=== PATIENT | female | born 1940 | race African-American/Black ===

== ENCOUNTER 2019-07-18 15:59 | Inpatient (IN) | payer OTHER ==
[~2019-07-18] VITALS: Ht 152.4 cm; Wt 72.6 kg
[2019-07-18 16:01] VITALS: BP 145/75
[2019-07-18 16:45] LABS: ABSOLUTE NEUTROPHILS 5.6 thou/uL (1.4-8.2); BASOPHILS 0.6 % (0.0-2.0); EOSINOPHILS 0.7 % (0.0-3.0); HEMATOCRIT 36.4 % (37.0-47.0); HEMOGLOBIN 11.8 gm/dL (12.0-15.0); LYMPHOCYTES 14.8 % (24.0-44.0); MCH 28.8 pg (26.0-34.0); MCHC 32.5 g/dL (28.0-37.0); MCV 88.5 fL (80.0-100.0); PLATELET COUNT 266 thou/uL (150-400); POLYS 72.9 % (36.0-66.0); RBC 4.11 mil/uL (4.20-5.00); RDW 15.6 % (10.5-14.5); WBC 7.6 thou/uL (4.0-11.0)
[2019-07-18 16:49] LABS: CALCIUM 9.6 mg/dL (8.5-10.1); CREATININE 1.3 mg/dL (0.6-1.0); POTASSIUM 4.1 mmol/L (3.5-5.1)
--- NOTE | 2019-07-18 16:58 | NUR ---
KRISTINA [phone] FAMILY CALLED TO GET AN UPDATE
[2019-07-18 16:59] LABS: ALBUMIN 2.7 g/dL (3.4-5.0); TOTAL BILIRUBIN 0.7 mg/dL (<0.1-1.0); TOTAL PROTEIN 7.9 g/dL (6.4-8.2); TROPONIN-I 0.13 ng/mL (<0.06)
[2019-07-18 17:13] LABS: URINE BILIRUBIN 1+ (Negative); URINE BLOOD 3+ (Negative); URINE CLARITY CLOUDY; URINE COLOR YELLOW; URINE GLUCOSE-RANDOM* NEGATIVE (Negative); URINE KETONES TRACE (Negative); URINE NITRITE-REFLEX NEGATIVE (Negative); URINE PROTEIN (DIPSTICK) 3+ (Negative); URINE SPECIFIC GRAVITY >= 1.030 (1.005-1.035)
[2019-07-18 17:14] LABS: ICTOTEST (BILI CONFIRMATORY) Negative (Negative); URINE LEUKOCYTES-REFLEX 1+ (Negative)
[2019-07-18] MEDS ORDERED: ULTRAM50 MG PO (17:27)
[2019-07-18 17:28] LABS: URINE WBC-REFLEX >25 Many /HPF (0-5)
[2019-07-18] MEDS ORDERED: TYLENOL325 MG PO (17:28)
[2019-07-18 17:29] LABS: BACTERIA-REFLEX >30 Many /HPF (None Seen); CASTS None Seen /LPF (None Seen); SQUAMOUS 0-3 Few /LPF (0-3)
[2019-07-18] MEDS ORDERED: PLAVIX 75 MG TA75 MG PO (17:29)
[2019-07-18] MEDS ORDERED: TRADJENTA5 MG (17:29)
[2019-07-18] MEDS ORDERED: LIPITOR 20 MG T20 M1 PO (17:29)
[2019-07-18] MEDS ORDERED: CARVEDILOL25 MG PO (17:29)
[2019-07-18 17:30] LABS: URIC ACID CRYSTALS 0-3 Few /LPF (None Seen)
[2019-07-18] MEDS ORDERED: TIZANIDINE HCL 22 M1 PO (17:30)
[2019-07-18 18:59] VITALS: BP 160/85
--- NOTE | 2019-07-18 19:01 | NUR ---
CALLED FAMILY TO INFORM OF PT BEING ADMITTED. INFORMED OF ROOM NUMBER
[2019-07-18 19:40] VITALS: BP 151/78
[2019-07-19 00:01] VITALS: BP 126/78
[2019-07-19] MEDS ORDERED: FLORANEX TABLE1 EACH PO (01:33)
[2019-07-19] MEDS ORDERED: LEVAQUIN 500 M500 M3 PO (01:34)
[2019-07-19] MEDS ORDERED: TRADJENTA5 MG PO (01:45)
[2019-07-19] MEDS ORDERED: LIDODERM1 EACH TOP (01:55)
[2019-07-19] MEDS ORDERED: TRADJENTA5 MG (01:57)
--- NOTE | 2019-07-19 01:59 | NUR ---
Patient was admitted to at 1930. Patient is confused. Nursing oriented patient to unit and completed admission documentation as best as possible without family/DPOA present. Fall precations in place. Nursing will continue to closely monitor.
[2019-07-19 05:03] VITALS: BP 171/85
--- NOTE | 2019-07-19 05:59 | NUR ---
Patient rested through NOC; nursing provided Q2 turns. Nursing will continue to monitor.
[2019-07-19 06:33] LABS: CHOLESTEROL 81 mg/dL (<200); HDL CHOLESTEROL 42 mg/dL (>40); LDL CHOLESTEROL 29 mg/dL (<100); TC:HDL 1.9 Ratio (Not establshd); TRIGLYCERIDE 52 mg/dL (<150); VLDL 10 mg/dL (<40)
[2019-07-19 06:34] LABS: SERUM ASSESSMENT Clear
[2019-07-19 07:21] VITALS: BP 163/85
[2019-07-19 08:01] VITALS: BP 142/89
--- NOTE | 2019-07-19 08:06 | NUR ---
ASSESSMENT: CM REVIEWED CHART AND MET WITH PATIENT AT THE BEDSIDE. PT IS A FROM [facility]. PT REPORTS SHE NORMALLY USES A WHEELCHAIR WHILE SHE IS THERE. PT IS AT [facility] FOR A SNF STAY AND DAUGHTER JOSE REPORTS SHE WAS ALSO RECENTLY AT [facility] THEN AT ANOTHER SNF BUT CANNOT THINK OF THE NAME AT THIS TIME. PLANS ARE FOR PATIENT TO RETURN TO [facility] ONCE MEDICALLY STABLE. PRIOR TO THAT PATIENT LIVES IN A HOUSE WITH HER DAUGHTER WHERE THEY HAVE ARRANGED EVERYTHING ON THE FIRST FLOOR FOR HER AND SHE HAS A WALKER TO ASSIST WITH AMBULATION. CM FAXED UPDATED CLINICAL TO [facility]. DAUGHTER REPORTS THAT PATIENTS DAUGHTER ALSO AND HER IS THIS TUESDAY BUT IF PATIENT IS NOT READY FOR DISCHARGE THEN THEY WILL NOT TAKE HER. CM WILL CONTIUE TO FOLLOW TO ASSIST NEEDED.
--- NOTE | 2019-07-19 08:15 | NUR ---
PT HAD 8/10 MIDSTERNAL CHEST PAIN RELIEVED WITH ONE NITRO. EKG OBTAINED. WILL CONTINUE TO ASSESS.
--- NOTE | 2019-07-19 08:27 | EKG ---
[address] [place] [address] ELECTROCARDIOGRAM REPORT Name: BERENICE PHILLIPS Room #: 362-P ADM IN M.R.#: [id number] Admission: 07/18/19 Attend Phys: Nydia Pena MD Discharge: Date of : 36 Report #: [id number] THIS REPORT FOR: //name// [facility] ED Test Date: 2019-07-18 Test Time: 17:18:59 Pat Name: BERENICE PHILLIPS Department: Room: 362 Gender: F Guest Services Lead: OXANA : 1940 Requested By: Shira Ramos Order Number: [id number] MD: Helder Cordero Measurements Intervals [place] Rate: 75 P: -30 SD: 190 QRS: 21 QRSD: 89 T: 22 QT: 390 QTc: 436 Interpretive Statements Sinus rhythm Atrial premature complexes Consider left ventricular hypertrophy Baseline wander in lead(s) V5 No previous ECG available for comparison Electronically Signed On 07-19-2019 8:27:29 CAKE WRAPPER by Helder Cordero [email or web address] <ELECTRONICALLY SIGNED> By: Helder Cordero MD 07/19/19 08 17 17 Helder Cordero MD /AUGIE
--- NOTE | 2019-07-19 08:35 | EKG ---
[address] [address] ELECTROCARDIOGRAM REPORT Name: BERENICE PHILLIPS Room #: 362-P ADM IN M.R.#: [id number] Admission: 07/18/19 Attend Phys: Nydia Pena MD Discharge: Date of : 36 Report #: [id number] THIS REPORT FOR: //name// [facility] Test Date: 2019-07-19 Test Time: 08:11:51 Pat Name: BERENICE PHILLIPS Department: Room: 362 P Gender: F Boring Machine Set Up Operator: Mic ENRIQUEZ : 1940 Requested By: Nydia Pena Order Number: [id number] MD: Helder Cordero Measurements Intervals [place] Rate: 90 P: -34 AK: 182 QRS: 35 QRSD: 97 T: 27 QT: 375 QTc: 459 Interpretive Statements Sinus rhythm Probable left ventricular hypertrophy No previous ECG available for comparison Electronically Signed On 07-19-2019 8:35:10 NOVELTY TWISTER TENDER by Helder Cordero [email or web address] <ELECTRONICALLY SIGNED> By: Helder Cordero MD 07/19/1937 0 0 Helder Cordero MD /AUGIE
--- NOTE | 2019-07-19 10:50 | 2DMMODE ---
[facility] [address] [place] [address] 2 D/M-MODE ECHOCARDIOGRAM Name: BERENICE PHILLIPS Room #: 362-P ADM IN .R.#: [id number] Admission: 07/18/19 Attend Phys: Nydia Pena MD Discharge: Date of : 36 Report #: [id number] THIS REPORT FOR: //name// APPROVED REPORT Study performed: 07/19/2019 09:34:29 EXAM: Comprehensive 2D, Doppler, and color-flow Echocardiogram Patient Location: Bedside Room #: 362 Status: routine BSA: 1.70 HR: 93 bpm BP: 142/89 mmHg Other Information Study Quality: Good Indications Congestive Heart Failure COPD Diabetes Elevated Troponin Hypertension/HDD 2D Dimensions RVDd: 27.89 mm IVSd: 11.80 (7-11mm) LVOT Diam: 19.23 (18-24mm) LVDd: 49.06 mm PWd: 12.32 (7-11mm) Ascending Ao: 29.83 (22-36mm) LVDs: 41.77 (25-40mm) Aortic Root: 29.37 mm IVC: 21.00 mm Volumes Left Atrial Volume (Systole) Single Plane 4CH: 87.59 mL Single Plane 2CH: 73.14 mL LA ESV Index: 51.00 mL/m2 Aortic Valve AoV Peak Don.: 1.46 m/s AO Peak Gr.: 8.55 mmHg LVOT Max P.23 mmHg LVOT Max V: 1.03 m/s SHARON Vmax: 2.04 cm2 Pulmonary Valve [facility] [email or web address] [address] 2 D/M-MODE ECHOCARDIOGRAM Name: BERENICE PHILLIPS Room #: 362-P [facility] IN [facility].#: [id number] Admission: 07/18/19 Attend Phys: Nydia Pena MD Discharge: Date of : 36 Report #: [id number] PV Peak Don.: 0.98 m/s PV Peak Gr.: 3.84 mmHg Tricuspid Valve TR Peak Don.: 3.05 m/s TR Peak Gr.: 37.29 mmHg PA Pressure: 47.00 mmHg Left Ventricle The left ventricle is normal size. There is global hypokinesis of the left ventricle. Mild concentric left ventricular hypertrophy. Left ventricular ejection fraction is moderate to severely decreased. LVEF is 35%. The diastolic function is abnormal. Appears to be restrictive pattern Right Ventricle The right ventricle is normal size. The right ventricular systolic function is normal. Atria Left atrium is dilated. Right atrium is dilated. Aortic Valve The aortic valve is normal in structure. No aortic regurgitation is present. There is no aortic valvular stenosis. Mitral Valve The mitral valve is normal in structure. Moderate to severe mitral regurgitation No evidence of mitral valve stenosis. Tricuspid Valve The tricuspid valve is normal in structure. There is mild tricuspid regurgitation. Estimated PAP 45 mmHg. There is moderate pulmonary hypertension. Pulmonic Valve The pulmonary valve is normal in structure. Trace pulmonic regurgitation. Great Vessels The aortic root is normal in size. IVC is dilated and collapses >50% with inspiration. Pericardium There is no pericardial effusion. <Conclusion> [facility] [email or web address] [address] 2 D/M-MODE ECHOCARDIOGRAM Name: BERENICE PHILLIPS Room #: 362-[facility] IN ..#: [id number] Admission: 07/18/19 Attend Phys: Nydia Pena MD Discharge: Date of : 36 Report #: [id number] Left ventricular ejection fraction is moderate to severely decreased. There is global hypokinesis of the left ventricle. LVEF is 35%. Mild concentric left ventricular hypertrophy. Both atria are dilated. The aortic valve is normal in structure. No aortic regurgitation or stenosis. The mitral valve is normal in structure. Moderate to severe mitral regurgitation There is mild tricuspid regurgitation. Estimated pulmonary artery pressure of 45 mmHg. There is no pericardial effusion. <ELECTRONICALLY SIGNED> By: Bakari Aviles MD, [facility] 07/19/19 1049 1049 1049 Bakari Aviles MD, FACC /INF
[2019-07-19 16:58] VITALS: BP 168/97
[2019-07-19 19:31] VITALS: BP 149/87
[2019-07-20 04:10] VITALS: BP 141/113
[2019-07-20 05:20] LABS: CALCIUM 8.7 mg/dL (8.5-10.1); POTASSIUM 4.1 mmol/L (3.5-5.1)
[2019-07-20 05:37] LABS: HEMATOCRIT 36.5 % (37.0-47.0); HEMOGLOBIN 11.8 gm/dL (12.0-15.0); MCH 29.1 pg (26.0-34.0); MCHC 32.3 g/dL (28.0-37.0); MCV 90.2 fL (80.0-100.0); RBC 4.05 mil/uL (4.20-5.00); RDW 15.6 % (10.5-14.5); WBC 6.9 thou/uL (4.0-11.0)
[2019-07-20 07:14] VITALS: BP 149/93
[2019-07-20] MEDS ORDERED: DEMADEX20 MG PO (11:50)
[2019-07-20] MEDS ORDERED: KLOR-CON 10 ER10 MEQ PO (11:52)
[2019-07-20] MEDS ORDERED: MAGNESIUM400 M1 PO (11:53)
--- NOTE | 2019-07-20 14:50 | NUR ---
ON-GOING ASSESSMENT: CM REVIEWED CHART AND PT HAS ORDERS TO DISCHARGE BACK TO [facility]. CM NOTIFIED [facility] AND SPOKE WITH SHEELA WHO ARRANGED TRANSPROTATION FOR PATIENT FOR 1800. CM NOTIFIED BEDSIDE RN AND PROVIDED HER WITH NUMBER FOR REPORT. CM ORDERED CHART COPY. CM FAXED DISCHARGE ORDERS TO [facility] AND CONFIRMED THEY RECEIVED IT. IVAN SPOKE WITH PATIENTS DAUGHTER KRISTINA TO UPDATE HER.
[2019-07-20 15:24] VITALS: BP 117/66
== END 2019-07-20 18:08 | DRG 280 ==
LOC: ER 15:59 → 3W 18:32 → EROBS 18:32 → 3W 19:18
PROVIDERS: Physician Assistant; ADMIT Internal Medicine
DX: I21.4 Non-ST elevation (NSTEMI) myocardial infarction (principal); G92 Toxic encephalopathy; I50.23 Acute on chronic systolic (congestive) heart failure; N30.00 Acute cystitis without hematuria; I47.2 Ventricular tachycardia; I69.354 Hemiplegia and hemiparesis following cerebral infarction affecting left non-dominant side; I13.0 Hypertensive heart and chronic kidney disease with heart failure and stage 1 through stage 4 chronic kidney disease, or unspecified chronic kidney disease; J44.9 Chronic obstructive pulmonary disease, unspecified; E78.5 Hyperlipidemia, unspecified; E11.22 Type 2 diabetes mellitus with diabetic chronic kidney disease; N18.9 Chronic kidney disease, unspecified; K73.9 Chronic hepatitis, unspecified; M17.0 Bilateral primary osteoarthritis of knee; E83.42 Hypomagnesemia; F01.50 Vascular dementia, unspecified severity, without behavioral disturbance, psychotic disturbance, mood disturbance, and anxiety; B96.89 Other specified bacterial agents as the cause of diseases classified elsewhere; Z88.6 Allergy status to analgesic agent; Z88.1 Allergy status to other antibiotic agents; Z88.8 Allergy status to other drugs, medicaments and biological substances; Z79.82 Long term (current) use of aspirin; Z79.899 Other long term (current) drug therapy; Z83.3 Family history of diabetes mellitus; Z23 Encounter for immunization
CPT/HCPCS: 10879